=== PATIENT | female | born 1980 | race Caucasian/White ===

== ENCOUNTER 2021-08-05 12:44 | Day surgery (SDC) | payer BC ==
[2021-08-05] MEDS ORDERED: BUPIVACAINE 0.5% VIAL IJ ONE (12:45)
[2021-08-05] MEDS ORDERED: Depo-Medrol 40 MG/ML IM ONE (12:45)
[2021-08-05] MEDS ORDERED: DIPRIVAN 200 MG/20 ML IV ONE ×2 (14:30→14:39)
[2021-08-05] MEDS ORDERED: Lactated Ringers 1,000 ML IV ONE (15:00)
--- NOTE | 2021-08-05 16:42 | XRAY ---
30 seconds of fluoroscopy was used in surgery for a left intra-articular hip injection.
--- NOTE | 2021-08-05 16:53 | XRAY ---
Indication: Left hip injection. Intraoperative fluoroscopy provided for 30 seconds. Single digital spot image submitted for interpretation demonstrates needle tip lateral to the left femur neck. Small amount of contrast injected for needle tip placement. Correlate with intraoperative findings/report.
== END 2021-08-05 15:05 | disposition home or self-care (01) ==
LOC: SDC-PAIN 12:44
PROVIDERS: ATTEND Psychiatry & Neurology Pain Medicine
DX: M16.12 Unilateral primary osteoarthritis, left hip (principal); Z79.899 Other long term (current) drug therapy
CPT/HCPCS: 20610; 73501; 77002; J1030; J2704; Q9966

== ENCOUNTER 2022-03-17 09:00 | Day surgery (SDC) | payer BC ==
[2022-03-17] MEDS ORDERED: Marcaine Mpf 0.5% Vial 30 Ml IJ ONE (09:01)
[2022-03-17] MEDS ORDERED: Depo-Medrol 40 MG/ML IM ONE (09:01)
[2022-03-17] MEDS ORDERED: XYLOCAINE 1% HCL 20 ML MDV ONE (09:49)
[2022-03-17] MEDS ORDERED: DIPRIVAN 200 MG/20 ML IV ONE (10:56)
[2022-03-17] MEDS ORDERED: Lactated Ringers 1,000 ML IV ONE (11:17)
--- NOTE | 2022-03-17 19:29 | XRAY ---
Indication: Left hip injection. Intraoperative fluoroscopy provided for 29 seconds. Single digital spot image submitted for interpretation demonstrates needle tip lateral to the left femur neck. Small amount of contrast injected for needle tip placement. Correlate with intraoperative findings/report.
--- NOTE | 2022-03-17 19:34 | XRAY ---
29 seconds of fluoroscopy was used in surgery for a left intra-articular hip injection.
== END 2022-03-17 11:25 | disposition home or self-care (01) ==
LOC: SDC-PAIN 09:00
PROVIDERS: ATTEND Psychiatry & Neurology Pain Medicine
DX: M16.12 Unilateral primary osteoarthritis, left hip (principal); Z79.899 Other long term (current) drug therapy
CPT/HCPCS: 20610; 36410; 73501; 77002; J1030; J2704; Q9966